=== PATIENT | female | born 1955 | race Caucasian/White ===

== ENCOUNTER → 2016-12-07 | Day surgery (SDC) | payer OTHER ==
[~2016-12-07] VITALS: Ht 165.1 cm; Wt 100.0 kg
[~2016-12-07] MED LIST: B-COTAB18 PO; BROM0.0911 OP; CIPR1TAB11 OPL; GABA1CAP PO; GLC500 PO; MULTCAP7 PO; PRED1SUS3; SERT-234 PO; SIMV20TA2 PO; [UNRECOGNIZED DRUG - REMARK] PO
[2016-12-07 08:48] VITALS: BP 120/64; PULSE 60; TEMP 36.6; O2SAT 96; Ht 165.1 cm; Wt 100.0 kg
[2016-12-07 09:16] LABS: PLATELET COUNT 127 K/uL (130-400)
[2016-12-07 09:29] LABS: PARTIAL THROMBOPLASTIN RATIO 1.1; PROTHROMBIN TIME (PATIENT) 11.2 SECONDS (9.0-12.0)
--- NOTE | 2016-12-07 10:38 | Discharge Instructions ---
Discharge Instructions Procedure Procedure Date: Dec 07, 2016. Reason for visit: Cirrhosis. Discharge Discharge Date: Dec 07, 2016. Discharge Diagnosis: Cirrhosis Instructions Activity Recommendations: No limitations Return to School/Work: no limitations Recommended Home Diet: Resume Previous Diet Provider Instructions: Patient states allergy to lidocaine. Patient needs 24 hour premedication prior to rescheduled study. Allergies Coded Allergies: Latex (Unverified Allergy, Unknown, Rash, 12/07/16) NO KNOWN DRUG ALLERGIES (Verified Allergy, Unknown, ., 12/07/16) Andres Kaye Recommendations: Call your doctor if: * Temperature above 101 degrees * Pain not relieved by pain medicine ordered * There is increased drainage or redness from any incision * You have any unanswered questions or concerns. Your Doctors Instructions noted above were prepared by provider Moody Oquendo. Patient Signature Section: Patient Instructions Signature Page Katie Gerard Patient (or Guardian) Signature/Date: I have read and understand the instructions given to me by my caregivers. Caregiver/RN/Doctor Signature/Date: The above-named patient and/or guardian has received patient instructions on this date. + Original Patient Signature Page (only) stays with chart. Please make copy for patient.
[2016-12-07 10:45] VITALS: BP 119/61; PULSE 61; TEMP 36.9; O2SAT 92
== END | disposition home or self-care (01) ==
LOC: C.ACU 08:25
PROVIDERS: ATTEND Internal Medicine Gastroenterology
DX: K74.60 Unspecified cirrhosis of liver (principal); Z88.4 Allergy status to anesthetic agent; Z53.09 Procedure and treatment not carried out because of other contraindication

== ENCOUNTER → 2016-12-29 | Day surgery (SDC) | payer OTHER ==
[2016-12-29] VITALS (7 sets, daily range): BP systolic 122–138; BP diastolic 58–82; PULSE 60–66; TEMP 36.8–37.1; O2SAT 94–96; Ht 165.1 cm; Wt 98.0 kg
[~2016-12-29] VITALS: Ht 165.1 cm; Wt 98.0 kg
[~2016-12-29] MED LIST changes: -B-COTAB18 PO; +CHLOROPROCAINE HCL 3% 20 ML VIAL INFIL ONE; -CIPR1TAB11 OPL; -MULTCAP7 PO; +NURSING VERBAL MED ORDER ONE; -PRED1SUS3
[2016-12-29 08:58] LABS: PLATELET COUNT 130 K/uL (130-400)
[2016-12-29 09:20] LABS: PARTIAL THROMBOPLASTIN RATIO 1.1
[2016-12-29 09:22] LABS: INR 1.1 (0.9-1.1); PROTHROMBIN TIME (PATIENT) 11.4 SECONDS (9.0-12.0)
--- NOTE | 2016-12-29 10:37 | Discharge Instructions ---
Discharge Instructions Procedure Procedure Date: Dec 29, 2016. Reason for visit: Elevated Lft's. Discharge Discharge Date: Dec 29, 2016. Discharge Diagnosis: s/p liver core biopsy Instructions Activity Recommendations: 1 Day-May resume regular activity, 48 Hours of decreased exertion Return to School/Work: no limitations Recommended Home Diet: No Limitations Provider Instructions: ACTIVITY RECOMMENDATIONS: * Rest today. * Resume regular activity in one day. MEDICATIONS: * May take Tylenol or Ibuprofen as needed for pain. DIET: * Resume previous diet. SPECIAL CARE INSTRUCTIONS: Call your doctor if: * Temperature above 101 degrees F. * Pain not relieved by pain medicine ordered. * Increased drainage or redness from incision. * Notify your doctor with any questions or concerns. Call your doctor or go to the nearest Emergency Department if you experience: * Increased chest pain or shortness of breath. FOLLOW UP VISIT: Follow-up with Referring Physician as scheduled. Allergies Coded Allergies: Latex (Unverified Allergy, Unknown, Rash, 12/29/16) Lidocaine (Verified Allergy, Unknown, area really numb for long time,leg tremors,neuralgia symptom, 12/29/16) NO KNOWN DRUG ALLERGIES (Verified Allergy, Unknown, ., 12/29/16) [place] Recommendations: Call your doctor if: * Temperature above 101 degrees * Pain not relieved by pain medicine ordered * There is increased drainage or redness from any incision * You have any unanswered questions or concerns. Your Doctors Instructions noted above were prepared by provider Maevrick Moura. Patient Signature Section: Patient Instructions Signature Page Katie Gerard Patient (or Guardian) Signature/Date: I have read and understand the instructions given to me by my caregivers. Caregiver/RN/Doctor Signature/Date: The above-named patient and/or guardian has received patient instructions on this date. + Original Patient Signature Page (only) stays with chart. Please make copy for patient.
--- NOTE | 2016-12-29 11:36 | DIAGNOSTIC IMAGING REPORT ---
ULTRASOUND GUIDED CORE RANDOM LIVER BIOPSY CLINICAL HISTORY: Elevated liver function tests. PROCEDURE: The procedure, risks and benefits were discussed with the patient including the risk of bleeding, infection and injury to adjacent structures. The patient agreed to the procedure and informed written consent was obtained. The procedure was performed by Dr. Moura following a timeout. Sonography of the liver demonstrate a suitable window for biopsy within the lateral segment. The liver appeared cirrhotic by sonography with coarsening of hepatic echotexture. Skin was prepped and draped in sterile fashion and local anesthesia was achieved with chloroprocaine. One 18-gauge 2 cm core sample of the lateral segment was obtained. This sample was deemed adequate. The patient tolerated the procedure well and no immediate complications were evident. IMPRESSION: Ultrasound guided random 18-gauge core liver biopsy. Electronically signed by: Maverick Moura M.D. 12/29/2016 11:34 AM Dictated Date/Time: 12/29/2016 11:32 AM
== END | disposition home or self-care (01) ==
LOC: C.ACU 08:26
PROVIDERS: ATTEND Nurse Practitioner
DX: K74.60 Unspecified cirrhosis of liver (principal)